=== PATIENT | male | born 1980 | race Caucasian/White ===

== ENCOUNTER 2016-11-17 19:09 | Emergency (ER) | payer OTHER ==
--- NOTE | 2016-11-17 19:47 | ED Physician Documentation ---
PD HPI BACK INJURY - Stated complaint Stated Complaint: BACK PX - Additional information Additional information: 36-year-old male with past medical history of hypertension and low back pain here with sudden onset severe low back pain which radiates to the right side since yesterday. 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 He has no associated numbness or weakness anywhere. This is similar to previous episodes he has had in the past of muscle spasm. He denies any change in bowel or bladder habits. He has no history of IV drug abuse. He denies any fevers or chills. He denies hematuria Review of Systems Ten Systems: 10 systems reviewed and negative Constitutional: denies: Fever, Chills Cardiac: denies: Chest pain / pressure Respiratory: denies: Dyspnea GI: denies: Nausea, Vomiting Musculoskeletal: reports: Back pain PD PAST MEDICAL HISTORY - Past Medical History Past Medical History: Yes Cardiovascular: Hypertension Psych: Depression - Past Surgical History Past Surgical History: No - Present Medications Home Medications: Ambulatory Orders Medication Instructions Recorded Confirmed Sertraline HCl [Zoloft] 25 mg PO DAILY 12/31/14 11/17/16 Meloxicam [Mobic] 7.5 mg PO DAILY #20 tablet 11/17/16 Methocarbamol [Robaxin] 1,000 mg PO Q8HR #30 tablet 11/17/16 Naltrexone HCl/Bupropion HCl 11/17/16 [Contrave ER 8-90 mg Tablet] raNITIdine [Zantac] 150 mg PO DAILY #30 tablet 11/17/16 - Allergies Allergies/Adverse Reactions: Allergies Allergy/AdvReac Type Severity Reaction Status Date / Time No Known Drug Allergies Allergy Verified 05/23/13 10:27 - Social History Does the pt smoke?: No Smoking Status: Never smoker Does the pt drink ETOH?: No Does the pt have substance abuse?: No - Immunizations Immunizations are current?: Yes - POLST Patient has POLST: No PD ED PE NORMAL - Vitals Vital signs reviewed: Yes - General General: Alert and oriented X 3, Other (In obvious distress secondary to pain) - HEENT HEENT: PERRL - Neck Neck: Supple, no meningeal sign - Cardiac Cardiac: No murmur (tachycardic) - Respiratory Respiratory: Clear bilaterally - Abdomen Abdomen: Normal bowel sounds, Soft, Non tender, Non distended - Back Back: No spinal TTP, Other (No midline C., T., L. spine tenderness to palpation. Mild right-sided tenderness to palpation at approximately L1 to 3. 5 out of 5 strength in all extremities, ambulatory. Sitting very still attempting not to move) - Derm Derm: Warm and dry - Extremities Extremities: No deformity - Neuro Neuro: Alert and oriented X 3 - Psych Psych: Normal mood, Normal affect Results - Vitals Vitals: Vital Signs - 24 hr 11/17/16 19:10 Temperature 36.6 C Heart Rate 108 H Respiratory 18 Rate Blood Pressure 161/103 H O2 Saturation 98 Oxygen O2 Source Room air - Labs Labs: Laboratory Tests 11/17/16 20:25 Urine Color YELLOW Urine Clarity CLEAR Urine pH 6.5 Ur Specific [place] <=1.005 Urine Protein NEGATIVE Urine Glucose (UA) NEGATIVE Urine Ketones NEGATIVE Urine Occult Blood NEGATIVE Urine Nitrite NEGATIVE Urine Bilirubin NEGATIVE Urine Urobilinogen 0.2 (NORMAL) Ur Leukocyte Esterase NEGATIVE Ur Microscopic Review NOT INDICATED Urine Culture Comments NOT INDICATED PD MEDICAL DECISION MAKING - ED course Complexity details: re-evaluated patient, considered differential, d/w patient ED course: 36-year-old male with past medical history of hypertension here with low back pain. Differential diagnosis includes but is not limited to muscle spasm versus muscle sprain versus sciatica versus kidney stone. Patient's urinalysis is normal without red blood cells. The pain he is currently having is similar to previous episodes of muscle spasm. At this time, he has no red flags for back pain. He has no history of IVDA, no fevers, no chills, no numbness or weakness, and no change in bowel or bladder habits. I do not feel he is cauda equina syndrome, or epidural abscess. I have given him Robaxin and Valium in the emergency department, discharged him with prescriptions for Motrin, Robaxin, ranitidine, and encouraged him to followup with his primary care physician. He is aware and amenable to discharge at this time with very strict return precautions. This document was made in part using voice recognition software. While efforts are made to proofread this document, sound alike and grammatical errors may occur. Departure - Departure Disposition: 01 Home, Self Care Clinical Impression: Back pain Qualifiers: Back pain location: low back pain Chronicity: acute Back pain laterality: right Sciatica presence: without sciatica Qualified Code(s): M54.5 - Low back pain Condition: Stable Instructions: ED Low Back Pain Injury Follow-Up: Lianna Haney PA-C [Primary Care Provider] - Within 1 week Prescriptions: Methocarbamol [Robaxin] 1,000 mg PO Q8HR #30 tablet Meloxicam [Mobic] 7.5 mg PO DAILY #20 tablet raNITIdine [Zantac] 150 mg PO DAILY #30 tablet Comments: Your blood pressure was elevated today on check in to the emergency department. This does not mean that you have hypertension, it is a common phenomenon to check into the emergency department and have elevated blood pressure. I recommend that you see your primary care physician within the week to have it rechecked when you're feeling better. I have written you 3 prescriptions today. The first one is for Robaxin, which is a muscle relaxer. Please take it for all 5 days. The second prescription is an anti-inflammatory called Mobic. It is very similar to, but much stronger than , Advil. Do not take Advil in addition to Mobic. Please be sure to take the Mobic with food. Take it for at least 48 hours and then as needed for pain. If it causes stomach upset, which it can, I have written you a prescription for an [id number] antacid which you can take as needed. Please followup this week with your primary care physician. Return to the ER for any numbness, weakness, change in bowel or bladder habits, or for any other medical emergency Forms: Activity restrictions
[2016-11-17] MEDS ORDERED: diazePAM 5 MG TABLET PO ONE (19:48)
[2016-11-17] MEDS: diazePAM 5 MG TABLET PO STA (19:52)
[2016-11-17] MEDS ORDERED: METHOCARBAMOL 500 MG TABLET PO ONE (20:33)
[2016-11-17] MEDS: METHOCARBAMOL 500 MG TABLET PO STA (20:37)
[2016-11-17 20:44] LABS: BILIRUBIN,URINE NEGATIVE (NEGATIVE); PH,URINE 6.5 PH (5.0-7.5)
[2016-11-17 20:59] LABS: UA CHARGE (STRIP ONLY) YES; UR CULTURE IF IND NOT INDICATED
[2016-11-17 21:38] VITALS: BP 149/109
== END 2016-11-17 21:39 | disposition home or self-care (01) ==
LOC: ED 19:09
DX: M54.5 Low back pain (principal); X50.9XXA Other and unspecified overexertion or strenuous movements or postures, initial encounter; Y93.F2 Activity, caregiving, lifting; Y99.0 Civilian activity done for income or pay; I10 Essential (primary) hypertension
CPT/HCPCS: 81001; 81003; 87086; 99283

== ENCOUNTER 2016-11-18 | Outpatient (CLI) | payer OTHER | END 2016-11-18 00:57 | disposition critical access hospital (66) | CPT/HCPCS: A0425; A0429 ==

== ENCOUNTER 2016-11-18 01:13 | Emergency (ER) | payer OTHER ==
[2016-11-18] MEDS ORDERED: ACETAMINOPHEN 1,000 MG/100 ML 100 ML IV STA (01:46)
[2016-11-18] MEDS ORDERED: KETOROLAC 60 MG/2 ML VIAL IVP STA (01:46)
[2016-11-18] MEDS ORDERED: diazePAM INJ 5 MG/ML SYRINGE IVP STA (01:46)
[2016-11-18] MEDS ORDERED: diazePAM INJ 5 MG/ML SYRINGE ONE (01:48)
[2016-11-18] MEDS ORDERED: KETOROLAC 30 MG/ML VIAL ONE (01:48)
[2016-11-18] MEDS ORDERED: ACETAMINOPHEN 1,000 MG/100 ML 100 ML IV ONE (01:48)
[2016-11-18] MEDS ORDERED: DEXAMETHASONE 10 MG/ML VIAL IVP STA (02:38)
[2016-11-18] MEDS ORDERED: DEXAMETHASONE 10 MG/ML VIAL ONE (02:43)
== END 2016-11-18 03:50 | disposition home or self-care (01) ==
DX: M62.830 Muscle spasm of back (principal); M54.5 Low back pain; X50.1XXA Overexertion from prolonged static or awkward postures, initial encounter; Y92.89 Other specified places as the place of occurrence of the external cause; Y99.0 Civilian activity done for income or pay; I10 Essential (primary) hypertension
CPT/HCPCS: 36415; 96374; 96375; 99284; J0131

== ENCOUNTER 2017-09-11 08:43 | Emergency (ER) | payer OTHER ==
[2017-09-11 08:49] VITALS: BP 155/106
--- NOTE | 2017-09-11 09:20 | ED Physician Documentation ---
History of Present Illness - Stated complaint Stated Complaint: COUGH/CHEST CONGESTION - Chief complaint Chief Complaint: Resp - Additonal information Additional information: hx from pt 36 male EMS has had cough and congestion and sinus pressure has tried appropriate OTC meds has seen PMD and had a three day course of zmax s improvement Review of Systems Constitutional: reports: Fatigue. denies: Fever Nose: reports: Congestion, Sinus pressure / pain Respiratory: reports: Cough Immunocompromised: denies: Immunocompromised PD PAST MEDICAL HISTORY - Past Medical History Cardiovascular: Hypertension Psych: Depression - Past Surgical History Past Surgical History: No - Present Medications Home Medications: Ambulatory Orders Medication Instructions Recorded Confirmed Sertraline HCl [Zoloft] 25 mg PO DAILY 12/31/14 09/11/17 Amox/Clav 875/125 [Augmentin] 1 each PO Q12H #20 tablet 09/11/17 Benzonatate [Tessalon] 100 mg PO TID PRN #20 capsule 09/11/17 Bp Pill 09/11/17 Fluticasone [Flonase] 1 sprays SOPHIE BID PRN #1 bottle 09/11/17 Pseudoephedrine [Sudafed] 30 mg PO Q6H PRN #20 tablet 09/11/17 - Allergies Allergies/Adverse Reactions: Allergies Allergy/AdvReac Type Severity Reaction Status Date / Time No Known Drug Allergies Allergy Verified 11/18/16 01:22 - Social History Does the pt smoke?: No Smoking Status: Never smoker Does the pt drink ETOH?: No Does the pt have substance abuse?: No - Immunizations Immunizations are current?: Yes - POLST Patient has POLST: No PD ED PE NORMAL - Vitals Vital signs reviewed: Yes - General General: Alert and oriented X 3 - HEENT HEENT: Ears normal, Pharynx benign (mild erythema no exudate), Other (no sinus swelling, congested) - Cardiac Cardiac: RRR - Respiratory Respiratory: No respiratory distress, Other (no wheeze or ronchi but slightly dec mid L lung) - Derm Derm: Normal color - Neuro Neuro: Alert and oriented X 3 Results - Vitals Vitals: Vital Signs - 24 hr 09/11/17 08:47 Temperature 37.1 C Heart Rate 81 Respiratory 18 Rate Blood Pressure 155/106 H O2 Saturation 95 Oxygen O2 Source Room air - Rads (name of study) CXR Radiology: See rad report (neg) Departure - Departure Disposition: Home, Self Care Clinical Impression: Sinusitis Qualifiers: Sinusitis location: other Chronicity: subacute Qualified Code(s): J01.80 - Other acute sinusitis Condition: Good Instructions: ED Sinusitis Abx Tx Prescriptions: Amox/Clav 875/125 [Augmentin] 1 each PO Q12H #20 tablet Benzonatate [Tessalon] 100 mg PO TID PRN #20 capsule PRN Reason: to ease cough Fluticasone [Flonase] 1 sprays SOPHIE BID PRN #1 bottle PRN Reason: allergies Pseudoephedrine [Sudafed] 30 mg PO Q6H PRN #20 tablet PRN Reason: congestion Comments: The xray is fine - no pneumonia, no TB etc Your sinus symptoms have been going on for a month despite conservative treatment so it is reasonable to try antibiotics at this time Also your blood pressure was quite high - please get that rechecked when you feel better
--- NOTE | 2017-09-11 09:45 | XRAY Report ---
EXAM: CHEST RADIOGRAPHY EXAM DATE: 09/11/2017 09:29 AM. CLINICAL HISTORY: Cough. COMPARISON: 12/31/2014. 07/31/2014. TECHNIQUE: 2 views. FINDINGS: Lungs/Pleura: No focal opacities evident. No pleural effusion. No pneumothorax. Normal volumes. Mediastinum: Heart and mediastinal contours are unremarkable. Other: Mild degenerative changes of the thoracic spine. IMPRESSION: 1. No acute disease in the chest. [facility] Referring Provider Line: [phone] SITE ID: [id number]
== END 2017-09-11 10:14 | disposition home or self-care (01) ==
LOC: ED 08:43
DX: J01.80 Other acute sinusitis (principal); I10 Essential (primary) hypertension
CPT/HCPCS: 71020; 99283

== ENCOUNTER 2017-10-07 14:52 | Emergency (ER) | payer OTHER ==
[2017-10-07 15:18] VITALS: BP 150/103
--- NOTE | 2017-10-07 15:21 | ED Physician Documentation ---
History of Present Illness - Stated complaint Stated Complaint: HIGH BLOOD PRESSURE,MED REFILL - Chief complaint Chief Complaint: General - History obtained from History obtained from: Patient - History of Present Illness Timing: Today Pain level max: 0 Pain level now: 0 - Additonal information Additional information: out of his HCTZ. Otherwise asymptomatic. No chest pain. No shortness of breath. No headache. No dizziness Review of Systems Cardiac: denies: Chest pain / pressure PD PAST MEDICAL HISTORY - Past Medical History Past Medical History: Yes Cardiovascular: Hypertension Psych: Depression - Past Surgical History Past Surgical History: No - Present Medications Home Medications: Ambulatory Orders Medication Instructions Recorded Confirmed Sertraline HCl [Zoloft] 25 mg PO DAILY 12/31/14 09/11/17 Amox/Clav 875/125 [Augmentin] 1 each PO Q12H #20 tablet 09/11/17 Benzonatate [Tessalon] 100 mg PO TID PRN #20 capsule 09/11/17 Bp Pill 09/11/17 Fluticasone [Flonase] 1 sprays SOPHIE BID PRN #1 bottle 09/11/17 Pseudoephedrine [Sudafed] 30 mg PO Q6H PRN #20 tablet 09/11/17 hydroCHLOROthiazide 25 mg PO DAILY #30 tablet 10/07/17 [Hydrochlorothiazide] - Allergies Allergies/Adverse Reactions: Allergies Allergy/AdvReac Type Severity Reaction Status Date / Time No Known Drug Allergies Allergy Verified 11/18/16 01:22 - Social History Does the pt smoke?: No Smoking Status: Never smoker Does the pt drink ETOH?: No Does the pt have substance abuse?: No - Immunizations Immunizations are current?: Yes - POLST Patient has POLST: No PD ED PE NORMAL - Vitals Vital signs reviewed: Yes - General General: Alert and oriented X 3, No acute distress - Neck Neck: Supple, no meningeal sign - Cardiac Cardiac: RRR - Respiratory Respiratory: No respiratory distress, Clear bilaterally - Derm Derm: Warm and dry - Neuro Neuro: Alert and oriented X 3 - Psych Psych: Normal mood Results - Vitals Vitals: Vital Signs - 24 hr 10/07/17 15:16 Temperature 36.1 C L Heart Rate 91 Respiratory 16 Rate Blood Pressure 150/103 H O2 Saturation 92 Oxygen O2 Source Room air PD MEDICAL DECISION MAKING - ED course Complexity details: considered differential, d/w patient ED course: Patient is a 36-year-old male out of his hydrochlorothiazide, requesting a refill. Asymptomatic here. Will refill his medications and follow-up with his doctor. This document was made in part using voice recognition software. While efforts are made to proofread this document, sound alike and grammatical errors may occur. Departure - Departure Disposition: 01 Home, Self Care Clinical Impression: Hypertension Qualifiers: Hypertension type: unspecified Qualified Code(s): I10 - Essential (primary) hypertension Condition: Good Instructions: ED HTN Established Follow-Up: Lianna Haney PA-C [Primary Care Provider] - Within 1 week Prescriptions: hydroCHLOROthiazide [Hydrochlorothiazide] 25 mg PO DAILY #30 tablet Comments: Follow-up with your doctor for further care. Return if you worsen or develop symptoms such as chest pain, vision changes or shortness of breath Discharge Date/Time: 10/07/17 15:23
== END 2017-10-07 15:23 | disposition home or self-care (01) ==
LOC: ED 14:52
DX: Z76.0 Encounter for issue of repeat prescription (principal); I10 Essential (primary) hypertension
CPT/HCPCS: 99282; 99283

== ENCOUNTER 2017-12-26 10:35 | Emergency (ER) | payer OTHER ==
[2017-12-26] MEDS ORDERED: SODIUM CHLORIDE 0.9% 1,000 ML IV ONE ×2 (11:13→12:21)
--- NOTE | 2017-12-26 11:38 | XRAY Preliminary Report ---
Exam: XR CHEST 2 VIEW X-RAY IMPRESSION: No active cardiopulmonary disease [facility] SITE ID: [id number]
--- NOTE | 2017-12-26 11:38 | XRAY Report ---
EXAM: CHEST RADIOGRAPHY EXAM DATE: 12/26/2017 11:23 AM. CLINICAL HISTORY: Fever cp soa. COMPARISON: 12/31/2014. TECHNIQUE: 2 views. FINDINGS: Lungs/Pleura: No focal opacities evident. No pleural effusion. No pneumothorax. Decreased volumes. Mediastinum: Heart and mediastinal contours are unremarkable. Other: DJD spine. Mild wedging thoracolumbar junction stable. IMPRESSION: No active cardiopulmonary disease [facility] Referring Provider Line: [phone] SITE ID: [id number]
[2017-12-26 11:47] LABS: BASOPHILS # (AUTO) 0.1 10^3/uL (0.0-0.1); BASOPHILS % (AUTO) 0.3 %; EOSINOPHILS % (AUTO) 0.1 %; HGB - HEMOGLOBIN 14.8 g/dL (14.0-18.0); LYMPHOCYTES # (AUTO) 0.7 10^3/uL (1.5-3.5); LYMPHOCYTES % (AUTO) 4.9 %; MEAN CORPUSCULAR HEMOGLOBIN 32.7 pg (27.0-31.0); MEAN CORPUSCULAR HGB CONC 34.2 g/dL (32.0-36.0); MEAN CORPUSCULAR VOLUME 95.6 fL (80.0-94.0); MONOCYTES # (AUTO) 1.1 10^3/uL (0.0-1.0); MONOCYTES % (AUTO) 7.3 %; NEUTROPHILS # (AUTO) 13.2 10^3/uL (1.5-6.6); NEUTROPHILS % (AUTO) 87.4 %; PLT - PLATELET COUNT 157 10^3/uL (130-450); RED BLOOD COUNT 4.54 10^6/uL (4.70-6.10); RED CELL DISTRIBUTION WIDTH 13.8 % (12.0-15.0); WHITE BLOOD COUNT 15.1 x10^3/uL (4.8-10.8)
[2017-12-26 11:57] LABS: CALCIUM 9.1 mg/dL (8.5-10.3); CREATININE 1.1 mg/dL (0.6-1.2)
[2017-12-26] MEDS ORDERED: KETOROLAC 60 MG/2 ML VIAL IVP STA (12:21)
[2017-12-26] MEDS ORDERED: ONDANSETRON 4 MG/2 ML VIAL IVP STA (12:21)
--- NOTE | 2017-12-26 12:58 | ED Physician Documentation ---
History of Present Illness - Stated complaint Stated Complaint: CHEST PX, DIZZY, FEVERS, SWEATS - Chief complaint Chief Complaint: Resp - Additonal information Additional information: hx from pt 37 male [facility] approx 2 days of fever chills ROJO mylagias cp soa weakness and a mild cough nausea no vomit no diarrhea exposed to flu numerous times a day in his job Review of Systems Constitutional: reports: Fever, Chills, Myalgias, Fatigue Cardiac: reports: Chest pain / pressure Respiratory: reports: Dyspnea, Cough GI: reports: Nausea. denies: Vomiting, Diarrhea Neurologic: reports: Headache Endocrine: denies: Easy bruising / bleeding Immunocompromised: denies: Immunocompromised PD PAST MEDICAL HISTORY - Past Medical History Past Medical History: Yes Cardiovascular: Hypertension Psych: Depression - Past Surgical History Past Surgical History: No - Present Medications Home Medications: Ambulatory Orders Medication Instructions Recorded Confirmed Sertraline HCl [Zoloft] 25 mg PO DAILY 12/31/14 09/11/17 hydroCHLOROthiazide 25 mg PO DAILY #30 tablet 10/07/17 [Hydrochlorothiazide] Fluticasone [Flonase] 1 sprays SOPHIE BID PRN #1 bottle 12/26/17 Ibuprofen [Motrin] 400 mg PO Q6H PRN #20 tablet 12/26/17 Pseudoephedrine [Sudafed] 30 mg PO Q6H PRN #20 tablet 12/26/17 Sertraline HCl [Zoloft] 100 mg PO DAILY 12/26/17 diltiaZEM [Cardizem] 120 mg PO DAILY 12/26/17 12/26/17 guaiFENesin/DEXTROMETHORPHAN 10 ml PO Q6H PRN #120 ml 12/26/17 [Robitussin Dm] - Allergies Allergies/Adverse Reactions: Allergies Allergy/AdvReac Type Severity Reaction Status Date / Time No Known Drug Allergies Allergy Verified 12/26/17 10:47 - Social History Does the pt smoke?: No Smoking Status: Never smoker Does the pt drink ETOH?: No Does the pt have substance abuse?: No - Immunizations Immunizations are current?: Yes - POLST Patient has POLST: No PD ED PE NORMAL - Vitals Vital signs reviewed: Yes - General General: Alert and oriented X 3 - HEENT HEENT: PERRL, Moist mucous membranes - Neck Neck: Supple, no meningeal sign - Cardiac Cardiac: RRR (tachy) - Respiratory Respiratory: No respiratory distress, Clear bilaterally - Abdomen Abdomen: Soft, Non tender - Derm Derm: Normal color - Extremities Extremities: No deformity - Neuro Neuro: Alert and oriented X 3 Results - Vitals Vitals: Vital Signs - 24 hr 12/26/17 12/26/17 12/26/17 10:43 13:21 14:59 Temperature 37.1 C 38.6 C H 37.4 C Heart Rate 114 H 106 H 94 Respiratory 22 20 18 Rate Blood Pressure 137/91 H 133/72 H 129/71 O2 Saturation 96 97 96 Oxygen O2 Source Room air - Labs Labs: Laboratory Tests 12/26/17 12/26/17 12/26/17 11:37 11:37 11:37 WBC 15.1 H RBC 4.54 L Hgb 14.8 Hct 43.4 MCV 95.6 H MCH 32.7 H MCHC 34.2 RDW 13.8 Plt Count 157 MPV 9.0 Neut # 13.2 H Lymph # 0.7 L Crook # 1.1 H Eos # 0.0 Baso # 0.1 Absolute Nucleated RBC 0.00 Nucleated RBC % 0.0 Sodium 133 L Potassium 3.4 L Chloride 94 L Carbon Dioxide 28 Anion Gap 11.0 BUN 14 Creatinine 1.1 Estimated GFR (MDRD) 76 L Glucose 139 H Lactic Acid Calcium 9.1 Troponin I < 0.04 Influenza A (Rapid) Influenza B (Rapid) Influenza Types A,B Ag 12/26/17 12/26/17 11:37 12:07 WBC RBC Hgb Hct MCV MCH MCHC RDW Plt Count MPV Neut # Lymph # Crook # Eos # Baso # Absolute Nucleated RBC Nucleated RBC % Sodium Potassium Chloride Carbon Dioxide Anion Gap BUN Creatinine Estimated GFR (MDRD) Glucose Lactic Acid 1.4 Calcium Troponin I Influenza A (Rapid) Negative Influenza B (Rapid) Negative Influenza Types A,B Ag - - Rads (name of study) CXR Radiology: See rad report (no acute) PD MEDICAL DECISION MAKING - ED course ED course: CXR neg for pna flu swabs neg but I still suspect pt has influenza based on his sx we discussed and he reasonably declines tamiflu feeling much much better after IVF toradol and ofirmev will dc on symptomatic meds Departure - Departure Disposition: 01 Home, Self Care Clinical Impression: Influenza Condition: Good Instructions: ED Flu Follow-Up: Donato Campo DO [Primary Care Provider] - Prescriptions: Fluticasone [Flonase] 1 sprays SOPHIE BID PRN #1 bottle PRN Reason: allergies guaiFENesin/DEXTROMETHORPHAN [Robitussin Dm] 10 ml PO Q6H PRN #120 ml PRN Reason: Cough Ibuprofen [Motrin] 400 mg PO Q6H PRN #20 tablet PRN Reason: Pain Pseudoephedrine [Sudafed] 30 mg PO Q6H PRN #20 tablet PRN Reason: congestion Comments: The xray does not show pneumonia. The flu swabs were negative but they are not 100% accurate and your symptoms are very consistent with influenza Since you are otherwise quite healthy and have been ill for a few days already, we discussed and decided against tamiflu. I did prescribe some medications to ease your symptoms and wrote a note for work. Forms: Activity restrictions
[2017-12-26] MEDS ORDERED: ACETAMINOPHEN 1,000 MG/100 ML 100 ML IV STA (13:25)
[2017-12-26 14:59] VITALS: BP 129/71
== END 2017-12-26 15:52 | disposition home or self-care (01) ==
LOC: ED 10:35
DX: J11.1 Influenza due to unidentified influenza virus with other respiratory manifestations (principal); I10 Essential (primary) hypertension
CPT/HCPCS: 36415; 71046; 80048; 83605; 84484; 85025; 87040; 87275; 87276; 93005; 96361; 96365; 96375; 99283; J0131

== ENCOUNTER 2018-03-04 14:56 | Emergency (ER) | payer OTHER ==
[2018-03-04 15:05] VITALS: BP 155/107
--- NOTE | 2018-03-04 16:40 | ED Physician Documentation ---
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 The patient's arm was shaking severely and the IV malpositioned and blood squirted out onto the parameds face and he did get some into his eye. Review of Systems Constitutional: denies: Fever Eyes: denies: Decreased vision Ears: denies: Ear pain Nose: reports: Congestion Throat: denies: Sore throat Respiratory: denies: Cough PD PAST MEDICAL HISTORY - Past Medical History Cardiovascular: Hypertension Psych: Depression - Past Surgical History Past Surgical History: No - Present Medications Home Medications: Ambulatory Orders Medication Instructions Recorded Confirmed hydroCHLOROthiazide 25 mg PO DAILY #30 tablet 10/07/17 03/04/18 [Hydrochlorothiazide] Sertraline HCl [Zoloft] 100 mg PO DAILY 12/26/17 03/04/18 diltiaZEM [Cardizem] 120 mg PO DAILY 12/26/17 03/04/18 - Allergies Allergies/Adverse Reactions: Allergies Allergy/AdvReac Type Severity Reaction Status Date / Time No Known Drug Allergies Allergy Verified 03/04/18 15:05 - Social History Does the pt smoke?: No Smoking Status: Never smoker Does the pt drink ETOH?: No Does the pt have substance abuse?: No - Immunizations Immunizations are current?: Yes - POLST Patient has POLST: No PD ED PE NORMAL - Vitals Vital signs reviewed: Yes (hypertensive ) - General General: Alert and oriented X 3, No acute distress, Well developed/nourished - HEENT HEENT: Atraumatic, PERRL, EOMI - Neck Neck: Supple, no meningeal sign - Respiratory Respiratory: No respiratory distress - Derm Derm: Normal color, Warm and dry, No rash - Extremities Extremities: No deformity, No edema - Neuro Neuro: No motor deficit, No sensory deficit Eye Opening: Spontaneous Motor: Obeys Commands Verbal: Oriented GCS Score: 15 - Psych Psych: Normal mood, Normal affect Results - Vitals Vitals: Vital Signs - 24 hr 03/04/18 15:04 Temperature 36.8 C Heart Rate 86 Respiratory 18 Rate Blood Pressure 155/107 H O2 Saturation 99 Oxygen O2 Source Room air PD MEDICAL DECISION MAKING - ED course Complexity details: reviewed results, re-evaluated patient, considered differential, d/w patient ED course: 37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 His rapid HIV came back negative and this is cancelled. - Sepsis Event Vital Signs: Vital Signs - 24 hr 03/04/18 15:04 Temperature 36.8 C Heart Rate 86 Respiratory 18 Rate Blood Pressure 155/107 H O2 Saturation 99 Oxygen O2 Source Room air Departure - Departure Disposition: 01 Home, Self Care Clinical Impression: Employee exposure to body fluids Condition: Stable Instructions: ED Body Fluid Exp HC Worker Follow-Up: Donato Campo DO [Primary Care Provider] - Comments: The source patient you were exposed to is HIV negative. Follow up with employee health regarding the other potential exposures as planned.
[2018-03-04] MEDS ORDERED: RALTEGRAVIR 400 MG PO SCH (21:00)
[2018-03-05 13:32] LABS: HEPATITIS B SURFACE AB QN IMM >1000 mIU/mL (> OR = 10); HEPATITIS C ANTIBODY NON-REACTIVE (NON-REACTIVE)
[2018-03-05 14:37] LABS: HIV AG/AB 4TH GEN NON-REACTIVE (NON-REACTIVE)
== END 2018-03-04 16:30 | disposition home or self-care (01) ==
LOC: ED 14:56
DX: Z77.21 Contact with and (suspected) exposure to potentially hazardous body fluids (principal); Y99.0 Civilian activity done for income or pay; I10 Essential (primary) hypertension
CPT/HCPCS: 36415; 86317; 86803; 87389; 99282

== ENCOUNTER 2018-03-12 11:00 | Outpatient (CLI) | payer OTHER | END 2018-03-12 11:01 | disposition home or self-care (01) | LOC: DI 11:00 | PROVIDERS: ATTEND Otolaryngology | DX: Z53.9 Procedure and treatment not carried out, unspecified reason (principal) ==

== ENCOUNTER 2018-03-19 14:12 | Outpatient (CLI) | payer OTHER ==
--- NOTE | 2018-03-19 14:51 | CT Report ---
Procedure Date: 03/19/2018 Accession Number: [id number] / [id number] Procedure: CT - Sinuses CPT Code: FULL RESULT: EXAM: Sinuses DATE: 03/19/2018 2:30 PM CLINICAL HISTORY: OTHER CHRONIC SINUSITIS,COUGH COMPARISON: None. TECHNIQUE: Routine multi-axial CT imaging performed through the sinuses. Iodinated IV contrast: None. Reconstructions: Coronal. In accordance with CT protocol optimization, one or more of the following dose reduction techniques were utilized for this exam: automated exposure control, adjustment of mA and/or KV based on patient size, or use of iterative reconstructive technique. FINDINGS: RIGHT Frontal: Normal. Ethmoid: Normal. Maxillary: Minimal mucosal thickening in the right maxillary sinus. Sphenoid: Normal. Drainage Pathways: The frontal recess, ostiomeatal complex and sphenoethmoidal recess are patent and normal. LEFT Frontal: Normal. Ethmoid: Normal. Maxillary: Normal. Sphenoid: Normal. Drainage Pathways: The frontal recess, ostiomeatal complex and sphenoethmoidal recess are patent and normal. Nasal Cavity: Leftward deviation of the septum. Osseous Structures: Normal. Orbits: Unremarkable. Other: None. IMPRESSION: Minimal mucosal thickening in the right maxillary sinus. No air-fluid levels. Leftward deviation of the septum. [facility]
== END 2018-03-19 14:13 | disposition home or self-care (01) ==
LOC: DI 14:12
PROVIDERS: ATTEND Otolaryngology
DX: J32.8 Other chronic sinusitis (principal); J34.2 Deviated nasal septum
CPT/HCPCS: 70486

== ENCOUNTER 2018-04-16 15:51 | Outpatient (CLI) | payer OTHER ==
[2018-04-17 12:36] LABS: HEPATITIS B SURFACE AB QN IMM >1000 mIU/mL (> OR = 10); HEPATITIS C ANTIBODY NON-REACTIVE (NON-REACTIVE)
[2018-04-17 14:32] LABS: HIV AG/AB 4TH GEN NON-REACTIVE (NON-REACTIVE)
== END 2018-04-16 15:52 | disposition home or self-care (01) ==
LOC: LAB 15:51
PROVIDERS: ATTEND Internal Medicine
DX: T75.89XA Other specified effects of external causes, initial encounter (principal)
CPT/HCPCS: 36415; 86317; 86803; 87389

== ENCOUNTER 2018-05-07 09:59 | Outpatient (CLI) | payer OTHER | END 2018-05-07 10:00 | disposition home or self-care (01) | LOC: SC 09:59 | PROVIDERS: ATTEND Nurse Practitioner Family | DX: R53.83 Other fatigue (principal); G47.8 Other sleep disorders; R06.83 Snoring | CPT/HCPCS: 99212; 99214 ==

== ENCOUNTER 2018-05-10 20:16 | Outpatient (CLI) | payer OTHER | END 2018-05-10 20:17 | disposition home or self-care (01) | LOC: SC 20:16 | PROVIDERS: ATTEND Internal Medicine Pulmonary Disease | DX: G47.33 Obstructive sleep apnea (adult) (pediatric) (principal); G47.61 Periodic limb movement disorder | CPT/HCPCS: 95810 ==

== ENCOUNTER 2018-05-28 13:29 | Outpatient (CLI) | payer OTHER | END 2018-05-28 13:30 | disposition home or self-care (01) | LOC: SC 13:29 | PROVIDERS: ATTEND Internal Medicine Pulmonary Disease | DX: G47.33 Obstructive sleep apnea (adult) (pediatric) (principal) | CPT/HCPCS: 99212; 99213 ==

== ENCOUNTER 2018-09-07 23:08 | Outpatient (CLI) | payer OTHER | END 2018-09-07 23:09 | disposition short-term general hospital (02) | LOC: EMS 23:08 | PROVIDERS: ATTEND Surgery | DX: R07.9 Chest pain, unspecified (principal) | CPT/HCPCS: A0425; A0427 ==

== ENCOUNTER 2019-02-02 22:24 | Emergency (ER) | payer BC, OTHER ==
[2019-02-02 23:16] LABS: BASOPHILS # (AUTO) 0.1 10^3/uL (0.0-0.1); BASOPHILS % (AUTO) 1.5 %; EOSINOPHILS # (AUTO) 0.1 10^3/uL (0.0-0.7); EOSINOPHILS % (AUTO) 0.9 %; HGB - HEMOGLOBIN 13.7 g/dL (14.0-18.0); LYMPHOCYTES # (AUTO) 1.8 10^3/uL (1.5-3.5); LYMPHOCYTES % (AUTO) 23.6 %; MEAN CORPUSCULAR HEMOGLOBIN 33.1 pg (27.0-31.0); MEAN CORPUSCULAR VOLUME 97.2 fL (80.0-94.0); MEAN PLATELET VOLUME 8.3 fL (7.4-11.4); MONOCYTES % (AUTO) 12.8 %; NEUTROPHILS # (AUTO) 4.7 10^3/uL (1.5-6.6); NEUTROPHILS % (AUTO) 61.2 %; PLT - PLATELET COUNT 180 10^3/uL (130-450); RED BLOOD COUNT 4.13 10^6/uL (4.70-6.10); RED CELL DISTRIBUTION WIDTH 13.6 % (12.0-15.0); WHITE BLOOD COUNT 7.6 x10^3/uL (4.8-10.8)
[2019-02-02 23:30] LABS: ALBUMIN 4.1 g/dL (3.2-5.5); ALBUMIN/GLOBULIN RATIO 1.2 (1.0-2.2); BILIRUBIN,TOTAL 0.7 mg/dL (0.2-1.0); CALCIUM 8.9 mg/dL (8.5-10.3); CREATININE 0.9 mg/dL (0.6-1.2); TOTAL PROTEIN 7.6 g/dL (6.7-8.2)
--- NOTE | 2019-02-02 23:53 | XRAY Report ---
Reason: Chest Pain Procedure Date: 02/02/2019 Accession Number: [id number] / [id number] Procedure: XR - Chest 1 View X-Ray CPT Code: 08472 FULL RESULT: EXAM: CHEST RADIOGRAPHY EXAM DATE: 02/02/2019 11:23 PM. CLINICAL HISTORY: Chest Pain. COMPARISON: CHEST 2 VIEW 12/26/2017 11:13 AM. TECHNIQUE: 1 view. FINDINGS: Lungs/Pleura: No dense consolidation. No large effusion or pneumothorax. No pulmonary edema. Mediastinum: Heart and mediastinal contours are unremarkable. Other: None. IMPRESSION: No acute radiographic pulmonary abnormalities. [facility]
[2019-02-03] MEDS ORDERED: KETOROLAC 30 MG/ML VIAL IVP STA (00:13)
[2019-02-03] MEDS ORDERED: diazePAM INJ 5 MG/ML SYRINGE IVP STA (00:42)
[2019-02-03 01:13] VITALS: BP 160/97
--- NOTE | 2019-02-19 17:46 | ED Physician Documentation ---
History of Present Illness - Stated complaint Stated Complaint: CP/L SHOULDER PX - Chief complaint Chief Complaint: Cardiac - History obtained from History obtained from: Patient - History of Present Illness Timing: Today Pain level max: 6 Pain level now: 6 Severity Comments: moderate Quality: sharpness of L upper chest and shoulder pain. 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 Review of Systems Ten Systems: 10 systems reviewed and negative Constitutional: denies: Fever, Chills Cardiac: reports: Chest pain / pressure. denies: Palpitations, Pedal edema, Calf pain Respiratory: denies: Dyspnea, Cough GI: denies: Abdominal Pain, Abdominal Swelling, Nausea, Vomiting Skin: reports: Reviewed and negative Musculoskeletal: reports: Neck pain. denies: Back pain, Extremity pain Neurologic: reports: Generalized weakness. denies: Focal weakness, Numbness, Near syncope, Syncope PD PAST MEDICAL HISTORY - Past Medical History Past Medical History: Yes Cardiovascular: Hypertension Respiratory: None Neuro: None Endocrine/Autoimmune: None GI: None : None HEENT: None Psych: Depression Musculoskeletal: None Derm: None - Past Surgical History Past Surgical History: No - Present Medications Home Medications: Ambulatory Orders Medication Instructions Recorded Confirmed hydroCHLOROthiazide 25 mg PO DAILY #30 tablet 10/07/17 03/04/18 [Hydrochlorothiazide] Sertraline HCl [Zoloft] 100 mg PO DAILY 12/26/17 03/04/18 diltiaZEM [Cardizem] 120 mg PO DAILY 12/26/17 03/04/18 Methocarbamol [Robaxin] 500 mg PO Q6H PRN #30 tablet 02/03/19 Oxycodone HCl/Acetaminophen 1 - 2 each PO Q6H PRN #14 tablet 02/03/19 [Percocet 5-325 mg Tablet] dexAMETHasone [Decadron] 4 mg PO DAILY #5 tablet 02/03/19 diazePAM [Valium] 5 - 10 mg PO TID PRN #15 tablet 02/03/19 - Allergies Allergies/Adverse Reactions: Allergies Allergy/AdvReac Type Severity Reaction Status Date / Time No Known Drug Allergies Allergy Verified 02/03/19 15:01 - Social History Does the pt smoke?: No Smoking Status: Never smoker Does the pt drink ETOH?: No Does the pt have substance abuse?: No - Immunizations Immunizations are current?: Yes - POLST Patient has POLST: No PD ED PE NORMAL - Vitals Vital signs reviewed: Yes - General General: Alert and oriented X 3 - HEENT HEENT: Atraumatic - Neck Neck: Supple, no meningeal sign - Cardiac Cardiac: RRR, No murmur, No gallop, No rub - Respiratory Respiratory: No respiratory distress, Clear bilaterally - Abdomen Abdomen: Soft, Non tender, Non distended - Male Male : Deferred - Rectal Rectal: Deferred - Derm Derm: Normal color, Warm and dry, No rash - Extremities Extremities: No deformity, Normal ROM s pain, No edema, No calf tenderness / cord, Other (Left anterior chest wall and posterior L shoulder tenderness to palpation. ) - Neuro Neuro: Alert and oriented X 3, No motor deficit, No sensory deficit Eye Opening: Spontaneous Motor: Obeys Commands Verbal: Oriented GCS Score: 15 - Psych Psych: Normal mood, Normal affect Results - Vitals Vitals: Oxygen O2 Source Room air - EKG (time done) No standard instances Rate: Rate (enter#) (110), Tachy Rhythm: Sinus tachycardia Norton: Normal Intervals: Normal CA QRS: Normal Ischemia: Normal ST segments - Labs Labs: Laboratory Tests 02/02/19 02/02/19 02/02/19 23:11 23:11 23:11 WBC 7.6 RBC 4.13 L Hgb 13.7 L Hct 40.1 L MCV 97.2 H MCH 33.1 H MCHC 34.0 RDW 13.6 Plt Count 180 MPV 8.3 Neut # (Auto) 4.7 Lymph # (Auto) 1.8 Starke # (Auto) 1.0 Eos # (Auto) 0.1 Baso # (Auto) 0.1 Absolute Nucleated RBC 0.00 Nucleated RBC % 0.0 D-Dimer Sodium 138 Potassium 3.9 Chloride 103 Carbon Dioxide 25 Anion Gap 10.0 BUN 15 Creatinine 0.9 Estimated GFR (MDRD) 95 Glucose 116 H Calcium 8.9 Total Bilirubin 0.7 AST 29 ALT 40 Alkaline Phosphatase 81 Troponin I < 0.04 Total Protein 7.6 Albumin 4.1 Globulin 3.5 Albumin/Globulin Ratio 1.2 Lipase 31 02/02/19 23:11 WBC RBC Hgb Hct MCV MCH MCHC RDW Plt Count MPV Neut # (Auto) Lymph # (Auto) Starke # (Auto) Eos # (Auto) Baso # (Auto) Absolute Nucleated RBC Nucleated RBC % D-Dimer 248.2 Sodium Potassium Chloride Carbon Dioxide Anion Gap BUN Creatinine Estimated GFR (MDRD) Glucose Calcium Total Bilirubin AST ALT Alkaline Phosphatase Troponin I Total Protein Albumin Globulin Albumin/Globulin Ratio Lipase Negative labs including ddimer and troponin - Rads (name of study) No standard instances Radiology: Final report received (no acute disease on cxr ) PD MEDICAL DECISION MAKING - ED course Complexity details: reviewed results, re-evaluated patient, considered differential, d/w patient ED course: 38 y/o male with L upper back and chest wall pain. Normal vitals except for tachycardia. No risk factors for PE and neg ddimer. Pt given analgesics here. CXR and EKG, albs, troponin all negatiave. Patient's symptoms are more c/w a shoulder strain. He has tenderness along the chest wall and shoulder. His symptoms improvement somewhat with pain meds. He is stable for outpt f/u Departure - Departure Disposition: Home, Self Care Clinical Impression: Chest wall pain Strain of left trapezius muscle Qualifiers: Encounter type: initial encounter Qualified Code(s): S46.812A - Strain of other muscles, fascia and tendons at shoulder and upper arm level, left arm, initial encounter Condition: Good Instructions: ED Spasm Back No Trauma, ED Strain Chest Wall Follow-Up: Donato Campo DO [Primary Care Provider] - As Needed Prescriptions: diazePAM [Valium] 5 - 10 mg PO TID PRN #15 tablet PRN Reason: Spasms Comments: Your labs, EKG and chest xray today were normal. Your symptoms are likely due to a muscular strain. You can take ibuprofen for pain and valium when not driving and at home if pain is severe for spasming. Use heat pads to help relax the muscles. Follow up with your PCP to recheck your symptoms Discharge Date/Time: 02/03/19 02:32
== END 2019-02-03 02:32 | disposition home or self-care (01) ==
LOC: ED 22:24
DX: R07.89 Other chest pain (principal); S46.812A Strain of other muscles, fascia and tendons at shoulder and upper arm level, left arm, initial encounter; I10 Essential (primary) hypertension
CPT/HCPCS: 36415; 71045; 80053; 83690; 84484; 85025; 85379; 93005; 99283

== ENCOUNTER 2019-02-03 14:54 | Emergency (ER) | payer BC ==
--- NOTE | 2019-02-03 15:13 | ED Physician Documentation ---
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 No: Fall, Twist Where injury occurred: Work Timing - onset: How many days ago (5) Timing - duration: Days (5) Timing - details: Gradual onset, Still present, Constant Worsened by: Moving, Palpating (around left side of neck, down to clavicle and to shoulder) Associated symptoms: No: Weakness, Numbness, Discolored Similar symptoms before: Has not had sx before Recently seen: Emergency Dept (seen last evening in ER and focus of workup was to evaluate for heart, with normal ECG and troponin.) Review of Systems Constitutional: denies: Fever, Chills Nose: denies: Rhinorrhea / runny nose, Congestion Throat: denies: Sore throat Respiratory: denies: Cough Skin: denies: Rash, Lesions Neurologic: denies: Focal weakness, Numbness PD PAST MEDICAL HISTORY - Past Medical History Past Medical History: Yes Cardiovascular: Hypertension Respiratory: None Neuro: None Endocrine/Autoimmune: None GI: None : None HEENT: None Psych: Depression Musculoskeletal: None Derm: None - Past Surgical History Past Surgical History: No - Present Medications Home Medications: Ambulatory Orders Medication Instructions Recorded Confirmed hydroCHLOROthiazide 25 mg PO DAILY #30 tablet 10/07/17 03/04/18 [Hydrochlorothiazide] Sertraline HCl [Zoloft] 100 mg PO DAILY 12/26/17 03/04/18 diltiaZEM [Cardizem] 120 mg PO DAILY 12/26/17 03/04/18 Dexamethasone [Decadron] 4 mg PO DAILY #5 tablet 02/03/19 Methocarbamol [Robaxin] 500 mg PO Q6H PRN #30 tablet 02/03/19 Oxycodone HCl/Acetaminophen 1 - 2 each PO Q6H PRN #14 tablet 02/03/19 [Percocet 5-325 mg Tablet] diazePAM [Valium] 5 - 10 mg PO TID PRN #15 tablet 02/03/19 - Allergies Allergies/Adverse Reactions: Allergies Allergy/AdvReac Type Severity Reaction Status Date / Time No Known Drug Allergies Allergy Verified 02/03/19 15:01 - Social History Does the pt smoke?: No Smoking Status: Never smoker Does the pt drink ETOH?: No Does the pt have substance abuse?: No - Immunizations Immunizations are current?: Yes - POLST Patient has POLST: No PD ED PE NORMAL - Vitals Vital signs reviewed: Yes - General General: Alert and oriented X 3, Well developed/nourished, Other (appears uncomfortable and guarding motion of left shoulder, held to his side. ) - Neck Neck: Supple, no meningeal sign, No bony TTP, No adenopathy - Cardiac Cardiac: RRR, No murmur - Respiratory Respiratory: Clear bilaterally - Derm Derm: Normal color, Warm and dry, No rash - Extremities Extremities: Other (left shoulder and side of neck tender in area of SCM, from side of neck to the clavicle and to the shoulder area. Pain with rotator cuff motions as well, but pain anterior shoulder and not scapular area. ) - Neuro Neuro: Alert and oriented X 3, No motor deficit, No sensory deficit, Normal speech Results - Vitals Vitals: Vital Signs - 24 hr 02/03/19 02/03/19 14:58 16:38 Temperature 37 C 36.9 C Heart Rate 104 H 106 H Respiratory 17 18 Rate Blood Pressure 149/116 H 142/106 H O2 Saturation 97 93 Oxygen O2 Source Room air - Rads (name of study) left shoulder Radiology: Prelim report reviewed, EMP read contemporaneously (no fractures nor calcific changes in tendons), See rad report PD MEDICAL DECISION MAKING - ED course Complexity details: considered differential (seems muscular of SCM, but also with rotator cuff motion pains. No skin rash nor sores. ), d/w patient Departure - Departure Disposition: Home, Self Care Clinical Impression: Left shoulder tendonitis Strain of sternocleidomastoid muscle Qualifiers: Encounter type: initial encounter Qualified Code(s): S16.1XXA - Strain of muscle, fascia and tendon at neck level, initial encounter Condition: Stable Record reviewed to determine appropriate education?: Yes Instructions: ED Sprain Shoulder Follow-Up: Adis Storm MD [Provider Admit Priv/Credential] - Prescriptions: Dexamethasone [Decadron] 4 mg PO DAILY #5 tablet Methocarbamol [Robaxin] 500 mg PO Q6H PRN #30 tablet PRN Reason: Spasms Oxycodone HCl/Acetaminophen [Percocet 5-325 mg Tablet] 1 - 2 each PO Q6H PRN #14 tablet PRN Reason: pain Comments: Sling for the shoulder to provide comfort. Be sure to have it out of the sling several times a day with gentle range of motion so it does not stiffen up. Continue some ibuprofen 600 mg 2-3 times a day. Add Decadron steroid anti- inflammatory daily for 5 days. Robaxin muscle relaxant for stiffness and spasm. Add Tylenol or Percocet if needed for pain. Follow-up with orthopedics early next week, call today or tomorrow morning for an appointment. Let them know you are seen in the ER for follow-up. Forms: Activity restrictions Discharge Date/Time: 02/03/19 17:02
--- NOTE | 2019-02-03 15:34 | XRAY Report ---
Reason: pain Procedure Date: 02/03/2019 Accession Number: [id number] / [id number] Procedure: XR - Shoulder 3 View LT CPT Code: FULL RESULT: EXAM: LEFT SHOULDER RADIOGRAPHY. EXAM DATE: 02/03/2019 03:22 PM. CLINICAL HISTORY: Pain. COMPARISON: None. TECHNIQUE: 3 views. FINDINGS: Bones: Normal. No fracture or bone lesion. Joints: The glenohumeral and acromioclavicular joints are normal. Soft tissues: The visualized hemithorax is unremarkable. No soft tissue swelling. IMPRESSION: Normal shoulder radiography. [facility]
[2019-02-03] MEDS ORDERED: HYDROmorphone 1 MG/ML CARPUJECT IM STA (15:53)
[2019-02-03] MEDS ORDERED: diazePAM 5 MG TABLET PO STA (15:53)
[2019-02-03] MEDS ORDERED: CHERRY SYRUP 10 ML UDC PO ONE (15:54)
[2019-02-03] MEDS ORDERED: DEXAMETHASONE 10 MG/ML VIAL PO STA (15:54)
[2019-02-03 16:38] VITALS: BP 142/106
== END 2019-02-03 17:02 | disposition home or self-care (01) ==
LOC: ED 14:54
DX: M75.92 Shoulder lesion, unspecified, left shoulder (principal); S16.1XXA Strain of muscle, fascia and tendon at neck level, initial encounter; X58.XXXA Exposure to other specified factors, initial encounter; Y93.F9 Activity, other caregiving; Y99.0 Civilian activity done for income or pay; I10 Essential (primary) hypertension; R07.89 Other chest pain; S46.812A Strain of other muscles, fascia and tendons at shoulder and upper arm level, left arm, initial encounter
CPT/HCPCS: 36415; 71045; 73030; 80053; 83690; 84484; 85025; 85379; 93005; 96372; 96374; 96375; 99283; A9270; J1170

== ENCOUNTER 2020-03-16 16:16 | Outpatient (CLI) | payer BC ==
--- NOTE | 2020-03-16 16:18 | XRAY Report ---
PROCEDURE: Finger(s) RT INDICATIONS: THUMB PAIN TECHNIQUE: AP hand, 3 views of the first finger(s) acquired. COMPARISON: None FINDINGS: Bones: No acute fractures or dislocations. No suspicious bony lesions. Soft tissues: No suspicious soft tissue calcifications. IMPRESSION: No visualized acute fracture or dislocation. However, occult injury cannot be excluded. Recommend jackelin rt interval imaging follow-up in 7-10 days as clinically indicated for additional evaluation. Reviewed by: Tatiana Ambrosio MD on 03/16/2020 4:17 PM PDT Approved by: Tatiana Ambrosio MD on 03/16/2020 4:17 PM PDT Station ID: [id number]
== END 2020-03-16 23:59 | disposition home or self-care (01) ==
LOC: DI.S 16:16
PROVIDERS: ATTEND Physician Assistant Medical
DX: M79.644 Pain in right finger(s) (principal)
CPT/HCPCS: 73140

== ENCOUNTER 2021-07-15 08:21 | Emergency (ER) | payer OTHER, BC ==
[2021-07-15] MEDS ORDERED: KETOROLAC 60 MG/2 ML VIAL IM STA (09:41)
--- NOTE | 2021-07-15 09:45 | ED Physician Documentation ---
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 No pain in right lower extremity. No numbness or tingling. No loss of bowel or bladder control. He states the pain is mostly in his lower back. No spinal pain. No other complaints at this time. Review of Systems Ten Systems: 10 systems reviewed and negative Constitutional: reports: Reviewed and negative Eyes: reports: Reviewed and negative Ears: reports: Reviewed and negative Nose: reports: Reviewed and negative Throat: reports: Reviewed and negative Cardiac: reports: Reviewed and negative Respiratory: reports: Reviewed and negative GI: reports: Reviewed and negative : reports: Reviewed and negative Skin: reports: Reviewed and negative Musculoskeletal: reports: Back pain Neurologic: reports: Reviewed and negative Psychiatric: reports: Reviewed and negative Endocrine: reports: Reviewed and negative Immunocompromised: reports: Reviewed and negative PD PAST MEDICAL HISTORY - Past Medical History Past Medical History: Yes Cardiovascular: Hypertension Respiratory: None Neuro: None Endocrine/Autoimmune: None GI: None : None HEENT: None Psych: Depression Musculoskeletal: None Derm: None - Past Surgical History Past Surgical History: No - Present Medications Home Medications: Ambulatory Orders Medication Instructions Recorded Confirmed hydroCHLOROthiazide 25 mg PO DAILY #30 tablet 10/07/17 07/15/21 [Hydrochlorothiazide] Sertraline HCl [Zoloft] 100 mg PO DAILY 12/26/17 07/15/21 diltiaZEM [Cardizem] 120 mg PO DAILY 12/26/17 07/15/21 diazePAM [Valium] 5 - 10 mg PO TID PRN #15 tablet 02/03/19 07/15/21 Cyclobenzaprine [Flexeril] 10 mg PO TID PRN #20 tablet 07/15/21 - Allergies Allergies/Adverse Reactions: Allergies Allergy/AdvReac Type Severity Reaction Status Date / Time No Known Drug Allergies Allergy Verified 07/15/21 08:34 - Social History Does the pt smoke?: No Smoking Status: Never smoker Does the pt drink ETOH?: No Does the pt have substance abuse?: No - Immunizations Immunizations are current?: Yes - POLST Patient has POLST: No PD ED PE NORMAL - Vitals Vital signs reviewed: Yes - General General: Alert and oriented X 3, No acute distress, Well developed/nourished - HEENT HEENT: Atraumatic, PERRL, EOMI, Moist mucous membranes - Neck Neck: Supple, no meningeal sign - Respiratory Respiratory: No respiratory distress - Back Back: No CVA TTP, No spinal TTP, Other (Right lumbar muscular tenderness. ) - Derm Derm: Normal color, Warm and dry, No rash - Extremities Extremities: No deformity, No edema - Neuro Neuro: Alert and oriented X 3, prosthetist 2-12 intact, Normal speech - Psych Psych: Normal mood, Normal affect Results - Vitals Vitals: Vital Signs - 24 hr 07/15/21 08:35 Temperature 36.5 C Heart Rate 83 Respiratory 18 Rate Blood Pressure 161/112 H O2 Saturation 96 Oxygen O2 Source Room air PD MEDICAL DECISION MAKING - ED course Complexity details: considered differential, d/w patient ED course: Patient was treated symptomatically with ketorolac and given a prescription for Flexeril. Departure - Departure Disposition: 01 Home, Self Care Clinical Impression: Lumbar strain Qualifiers: Encounter type: initial encounter Qualified Code(s): S39.012A - Strain of muscle, fascia and tendon of lower back, initial encounter Condition: Stable Instructions: ED Sprain Strain Lumbar Prescriptions: Cyclobenzaprine [Flexeril] 10 mg PO TID PRN #20 tablet PRN Reason: Spasms
[2021-07-15 10:12] VITALS: BP 147/103
== END 2021-07-15 10:11 | disposition home or self-care (01) ==
LOC: ED 08:21
DX: S39.012A Strain of muscle, fascia and tendon of lower back, initial encounter (principal); X50.1XXA Overexertion from prolonged static or awkward postures, initial encounter; X50.0XXA Overexertion from strenuous movement or load, initial encounter; Y93.F2 Activity, caregiving, lifting; Y92.9 Unspecified place or not applicable; Y99.0 Civilian activity done for income or pay; I10 Essential (primary) hypertension; F32.9 Major depressive disorder, single episode, unspecified
CPT/HCPCS: 96372; 99283

== ENCOUNTER 2021-09-13 08:00 | Outpatient (CLI) | payer BC ==
[2021-09-13 15:50] LABS: B. PARAPERTUSSIS- RESP PCR PAN NOT DETECTED; B. PERTUSSIS- RESP PCR PANEL NOT DETECTED; C. PNEUMONIAE- RESP PCR PANEL NOT DETECTED; CORONAVIRUS 229E-RESP PCR NOT DETECTED; CORONAVIRUS HKU1-RESP PCR NOT DETECTED; CORONAVIRUS NL63-RESP PCR NOT DETECTED; CORONAVIRUS OC43-RESP PCR NOT DETECTED; HUMAN METAPNEUMOVIRUS NOT DETECTED; INFLUENZA A- RESP PCR PANEL NOT DETECTED; INFLUENZA B - RESP PCR PANEL NOT DETECTED; M. PNEUMONIAE- RESP PCR PANEL NOT DETECTED; PARAINFLUENZA VIRUS 1 NOT DETECTED; PARAINFLUENZA VIRUS 2 NOT DETECTED; PARAINFLUENZA VIRUS 3 NOT DETECTED; PARAINFLUENZA VIRUS 4 NOT DETECTED; RHINOVIRUS/ENTEROVIRUS NOT DETECTED; RSV- RESP PCR PANEL NOT DETECTED; SARS-CoV-2 -RESP PCR PANEL NOT DETECTED
== END 2021-09-13 23:59 ==
LOC: LAB 08:00
PROVIDERS: ATTEND Emergency Medicine
DX: J06.9 Acute upper respiratory infection, unspecified (principal); Z20.822 Contact with and (suspected) exposure to COVID-19
CPT/HCPCS: 0202U

== ENCOUNTER 2022-03-11 12:49 | Emergency (ER) | payer OTHER, BC ==
[2022-03-11 12:56] VITALS: BP 136/95
--- NOTE | 2022-03-11 13:44 | XRAY Report ---
PROCEDURE: Knee 4 View RT INDICATIONS: Trauma TECHNIQUE: 4 views of the right knee(s) were acquired. COMPARISON: None. FINDINGS: Bones: No fractures or dislocations. No suspicious bony lesions. Soft tissues: No joint effusion. No suspicious soft tissue calcifications. IMPRESSION: No acute fracture. No osseous lesion. If symptoms and/or clinical suspicion for patholog y continue, further assessment with repeat plain films, or advanced imaging (e.g., CT, MRI, or bone s can) is recommended for further assessment. Reviewed by: Raheem Candelario MD on 03/11/2022 1:42 PM PDT Approved by: Raheem Candelario MD on 03/11/2022 1:42 PM PDT Station ID: [id number]
--- NOTE | 2022-03-11 13:50 | ED Physician Documentation ---
PD HPI LOWER EXT INJURY - Stated complaint Stated Complaint: RT KNEE INJURY - Chief complaint Chief Complaint: Trauma Ext - History obtained from History obtained from: Patient - History of Present Illness PD HPI LOW EXT INJURY LOCATION: Right, Knee Type of injury: Fall Where injury occurred: Work Timing - onset: Yesterday Timing - duration: Days (1) Timing - details: Gradual onset Pain level max: 5 Pain level now: 3 Improved by: Rest, Ice, Immobilization Worsened by: Moving, Palpating Associated symptoms: Swelling. 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 No pain initially but is gradually worsened throughout the night. Increased pain with movement and walking today. No numbness or tingling. Better with rest. Review of Systems Constitutional: denies: Fever, Chills GI: denies: Vomiting, Diarrhea Skin: denies: Rash Musculoskeletal: denies: Neck pain, Back pain PD PAST MEDICAL HISTORY - Past Medical History Past Medical History: Yes Cardiovascular: Hypertension Respiratory: None Neuro: None Endocrine/Autoimmune: None GI: None : None HEENT: None Psych: Depression Musculoskeletal: None Derm: None - Past Surgical History Past Surgical History: No - Present Medications Home Medications: Ambulatory Orders Medication Instructions Recorded Confirmed hydroCHLOROthiazide 25 mg PO DAILY #30 tablet 10/07/17 07/15/21 [Hydrochlorothiazide] Sertraline HCl [Zoloft] 100 mg PO DAILY 12/26/17 07/15/21 diltiaZEM [Cardizem] 120 mg PO DAILY 12/26/17 07/15/21 diazePAM [Valium] 5 - 10 mg PO TID PRN #15 tablet 02/03/19 07/15/21 Cyclobenzaprine [Flexeril] 10 mg PO TID PRN #20 tablet 07/15/21 - Allergies Allergies/Adverse Reactions: Allergies Allergy/AdvReac Type Severity Reaction Status Date / Time No Known Drug Allergies Allergy Verified 07/15/21 08:34 - Social History Does the pt smoke?: No Smoking Status: Never smoker Does the pt drink ETOH?: No Does the pt have substance abuse?: No - Immunizations Immunizations are current?: Yes - POLST Patient has POLST: No PD ED PE NORMAL - Vitals Vital signs reviewed: Yes - General General: Alert and oriented X 3, No acute distress - HEENT HEENT: Moist mucous membranes - Neck Neck: Supple, no meningeal sign - Derm Derm: Warm and dry - Extremities Extremities: Other (R knee - ACL, MCL, LCL, PCL intact. mild effusion. NVI) - Neuro Neuro: Alert and oriented X 3 - Psych Psych: Normal mood, Normal affect Results - Vitals Vitals: Vital Signs - 24 hr 03/11/22 12:53 Temperature 36.4 C L Heart Rate 80 Respiratory 16 Rate Blood Pressure 136/95 H O2 Saturation 97 Oxygen O2 Source Room air - Rads (name of study) R knee xray Radiology: Final report received, EMP read contemporaneously, See rad report (no acute abnormality) PD MEDICAL DECISION MAKING - ED course Complexity details: considered differential, d/w patient ED course: 41-year-old male with right knee pain. No acute findings on x-ray. Mild effusion on exam. Placed an articulating knee brace. We will have him follow- up with his doctor and orthopedics for further care. Patient counseled regarding signs and symptoms for which I believe and urgent re-evaluation would be necessary. Patient with good understanding of and agreement to plan and is comfortable going home at this time This document was made in part using voice recognition software. While efforts are made to proofread this document, sound alike and grammatical errors may occur. Departure - Departure Disposition: 01 Home, Self Care Clinical Impression: Strain of right knee Qualifiers: Encounter type: initial encounter Qualified Code(s): S86.911A - Strain of unspecified muscle(s) and tendon(s) at lower leg level, right leg, initial encounter Condition: Good Instructions: ED Sprain Knee Follow-Up: your,doctor in 1 week [Other] Comments: Your x-rays do not show any acute abnormalities today. Please follow-up with your doctor for further care. Wear the brace as needed for comfort. He can use Motrin or Tylenol as needed for pain. You may bear weight as tolerated. Return if you worsen. Discharge Date/Time: 03/11/22 14:18
== END 2022-03-11 14:18 | disposition home or self-care (01) ==
LOC: ED 12:49
DX: S86.911A Strain of unspecified muscle(s) and tendon(s) at lower leg level, right leg, initial encounter (principal); W01.0XXA Fall on same level from slipping, tripping and stumbling without subsequent striking against object, initial encounter; Y99.0 Civilian activity done for income or pay; I10 Essential (primary) hypertension
CPT/HCPCS: 99282; 99283